=== PATIENT | male | born 1980 | race Caucasian/White ===

== ENCOUNTER 2018-07-13 20:53 | Emergency (ER) | payer BC ==
[~2018-07-13] VITALS: Ht 167.6 cm; Wt 90.9 kg
[2018-07-13 20:57] VITALS: BP 152/92; PULSE 70; TEMP 99.3
[2018-07-13] MEDS ORDERED: CLARITIN 1010 MG/TAB PO (20:59)
== END 2018-07-13 22:08 | disposition home or self-care (01) ==
LOC: COL.ER 20:53
DX: G57.11 Meralgia paresthetica, right lower limb (principal)